=== PATIENT | female | born 1990 | race Caucasian/White ===

== ENCOUNTER 2020-03-10 17:37 | Inpatient (IN) | payer OTHER ==
[~2020-03-10] VITALS: Ht 162.6 cm; Wt 64.0 kg
[2020-03-10] MEDS ORDERED: QUET25TA PO (18:14)
[2020-03-10] MEDS ORDERED: CITA10TA99 PO (18:14)
[2020-03-10] MEDS ORDERED: CLON-592 PO (18:14)
[2020-03-10] MEDS ORDERED: CIPR250T6 PO (18:14)
[2020-03-10] MEDS ORDERED: LEVO25TA9 PO (18:14)
[2020-03-10 18:53] LABS: BASOPHILS % (AUTO) 0.4 % (0.0-2.0); EOSINOPHILS % (AUTO) 0.8 % (1.0-6.0); HEMATOCRIT 40.6 % (36-46); HEMOGLOBIN 13.2 g/dL (12.0-16.0); LYMPHOCYTES # (AUTO) 2.5 K/uL (1.0-4.8); MEAN CORPUSCULAR HEMOGLOBIN 29.2 pg (26.0-34.0); MEAN CORPUSCULAR HGB CONC 32.6 G/dL (31.0-37.0); MEAN CORPUSCULAR VOLUME 90 fL (80-100); MONOCYTES # (AUTO) 0.7 K/uL (0.1-1.0); MONOCYTES % (AUTO) 5.8 % (2.0-9.0); NEUTROPHILS # (AUTO) 9.3 K/uL (1.8-7.7); PLATELET COUNT (AUTO) 348 K/uL (150-450); RED BLOOD CELL COUNT(AUTO) 4.54 MIL/uL (4.00-5.20); RED CELL DISTRIBUTION WIDTH 15.6 % (11.5-14.5)
[2020-03-10 19:05] LABS: ANION GAP 13 mmol/L (8-16); CALCIUM, TOTAL 9.2 mg/dL (8.8-10.5); CARBON DIOXIDE 24 mmol/L (22-29); CHLORIDE 104 mmol/L (98-107); CREATININE 0.96 mg/dL (0.60-1.30); GLOMERULAR FILTR. RATE CALC > 60 mL/min (>60); GLUCOSE,RANDOM 90 mg/dL (70-110); SODIUM SERUM 141 mmol/L (136-145); UREA NITROGEN, BLOOD 5 mg/dL (7-18)
[2020-03-10 19:11] LABS: ALANINE AMINOTRANSFERASE 23 U/L (12-78); ALBUMIN 3.6 g/dL (3.4-5.0); ALKALINE PHOSPHATASE 95 U/L (46-116); ASPARTATE AMINOTRANSFERASE 20 U/L (15-37); BILIRUBIN,TOTAL 0.4 mg/dL (0.1-1.0); TOTAL PROTEIN, SERUM 8.9 g/dL (6.4-8.2)
[2020-03-10] MEDS ORDERED: ONDANSETRON HCL 4 MG/2 ML VIAL IVP PRN ×2 (20:15→20:45)
[2020-03-10] MEDS ORDERED: ACETAMINOPHEN 325 MG TABLET PO PRN ×2 (20:15→20:45)
[2020-03-10 21:40] VITALS: BP 103/68
[2020-03-10 21:43] LABS: THYROID STIMULATING HORMONE 8.21 uIU/mL (0.36-3.74)
[2020-03-10] MEDS: QUEtiapine FUMARATE 25 MG TABLET PO SCH (21:49)
[2020-03-10] MEDS: DOCUSATE SODIUM 100 MG CAPSULE PO SCH (21:50)
[2020-03-10] MEDS ORDERED: MORPHINE SULFATE 2 MG/ML SYRINGE IVP PRN (22:15)
[2020-03-10 23:18] LABS: FREE T4 (FREE THYROXINE) 1.22 ng/dL (0.76-1.46)
[2020-03-11] MEDS ORDERED: CeFAZolin 1 GM/DEXTROSE 50 ML IV SCH
[2020-03-11] MEDS ORDERED: SODIUM CHLORIDE 0.9% 500 ML IV ONE (00:25)
[2020-03-11] MEDS: LIDOCAINE 3% CREAM 85 GM TUBE TP PRN ×2 (00:46→08:21)
[2020-03-11] MEDS: LEVOTHYROXINE SODIUM 25 MCG TABLET PO SCH (05:30)
[2020-03-11 06:18] VITALS: BP 104/75
[2020-03-11 07:56] VITALS: BP 101/62
[2020-03-11] MEDS: QUEtiapine FUMARATE 25 MG TABLET PO SCH (08:20)
[2020-03-11] MEDS: CLINDAMYCIN HCL 300 MG CAPSULE PO SCH ×3 (08:20→23:46)
[2020-03-11] MEDS: ENOXAPARIN SODIUM 40 MG/0.4 ML PF SYRINGE SQ SCH (08:20)
[2020-03-11] MEDS: DOCUSATE SODIUM 100 MG CAPSULE PO SCH ×2 (08:20→21:00)
[2020-03-11] MEDS: CITALOPRAM HYDROBROMIDE 20 MG TABLET PO SCH (11:06)
[2020-03-11] MEDS: BusPIRone HCL 10 MG TABLET PO SCH ×2 (11:06→21:00)
[2020-03-11 12:52] LABS: APPEARANCE,URINE CLEAR (CLEAR); BILIRUBIN,URINE NEGATIVE (NEGATIVE); GLUCOSE, URINE (UA) NEGATIVE (NEGATIVE); KETONES,URINE NEGATIVE (NEGATIVE); LEUKOCYTE ESTERASE ,URINE TRACE (NEGATIVE); NITRATE,URINE NEGATIVE (NEGATIVE); OCCULT BLOOD,URINE NEGATIVE (NEGATIVE); PROTEIN,URINE NEGATIVE (NEGATIVE); UROBILINOGEN,URINE 0.2 mg/dL (<=1.0)
[2020-03-11 13:05] LABS: AMPHET/METH SCREEN,URINE NEGATIVE (NEGATIVE); BARBITURATE SCREEN, URINE NEGATIVE (NEGATIVE); BENZODIAZEPINES SCREEN,URINE NEGATIVE (NEGATIVE); CANNABINOID SCREEN,URINE POSITIVE (NEGATIVE); COCAINE SCREEN,URINE NEGATIVE (NEGATIVE); METHADONE SCREEN, URINE NEGATIVE (NEGATIVE); OPIATE SCREEN,URINE NEGATIVE (NEGATIVE)
[2020-03-11 13:13] LABS: BACTERIA,URINE None Seen /HPF (None Seen); RBC,URINE None Seen /HPF (0-2); SQUAMOUS EPITHELIAL CELL,UR Rare /LPF (None Seen); WBC,URINE 0-2 /HPF (0-5)
[2020-03-11 13:28] LABS: PHENCYCLIDINE SCREEN,URINE NEGATIVE (NEGATIVE)
[2020-03-11 15:45] VITALS: BP 108/59
[2020-03-11 19:32] VITALS: BP 121/72
[2020-03-12 04:45] VITALS: BP 101/59
[2020-03-12] MEDS: LEVOTHYROXINE SODIUM 25 MCG TABLET PO SCH (06:16)
[2020-03-12 07:20] LABS: BASOPHILS % (AUTO) 0.7 % (0.0-2.0); EOSINOPHILS % (AUTO) 1.6 % (1.0-6.0); HEMATOCRIT 41.3 % (36-46); HEMOGLOBIN 13.7 g/dL (12.0-16.0); LYMPHOCYTES # (AUTO) 2.1 K/uL (1.0-4.8); LYMPHOCYTES % (AUTO) 19.9 % (22.0-44.0); MEAN CORPUSCULAR HEMOGLOBIN 29.9 pg (26.0-34.0); MEAN CORPUSCULAR HGB CONC 33.2 G/dL (31.0-37.0); MEAN CORPUSCULAR VOLUME 90 fL (80-100); MONOCYTES # (AUTO) 0.7 K/uL (0.1-1.0); MONOCYTES % (AUTO) 6.2 % (2.0-9.0); NEUTROPHILS # (AUTO) 7.6 K/uL (1.8-7.7); NEUTROPHILS % (AUTO) 71.6 % (40.0-70.0); PLATELET COUNT (AUTO) 337 K/uL (150-450); RED CELL DISTRIBUTION WIDTH 15.3 % (11.5-14.5)
[2020-03-12] MEDS: LIDOCAINE 3% CREAM 85 GM TUBE TP PRN (08:18)
[2020-03-12] MEDS: CLINDAMYCIN HCL 300 MG CAPSULE PO SCH ×3 (08:18→23:48)
[2020-03-12] MEDS: ENOXAPARIN SODIUM 40 MG/0.4 ML PF SYRINGE SQ SCH (08:18)
[2020-03-12] MEDS: DOCUSATE SODIUM 100 MG CAPSULE PO SCH ×3 (08:19→21:00)
[2020-03-12] MEDS: BusPIRone HCL 10 MG TABLET PO SCH ×2 (08:19→21:00)
[2020-03-12] MEDS: CITALOPRAM HYDROBROMIDE 20 MG TABLET PO SCH (08:19)
[2020-03-12 08:36] VITALS: BP 113/62
[2020-03-12 19:48] VITALS: BP 100/57
[2020-03-13 04:40] VITALS: BP 105/64
[2020-03-13] MEDS: LEVOTHYROXINE SODIUM 25 MCG TABLET PO SCH (06:06)
[2020-03-13 07:40] VITALS: BP 110/73
[2020-03-13] MEDS: ENOXAPARIN SODIUM 40 MG/0.4 ML PF SYRINGE SQ SCH (08:46)
[2020-03-13] MEDS: CLINDAMYCIN HCL 300 MG CAPSULE PO SCH ×3 (08:46→23:13)
[2020-03-13] MEDS: DOCUSATE SODIUM 100 MG CAPSULE PO SCH ×3 (08:46→21:00)
[2020-03-13] MEDS: BusPIRone HCL 10 MG TABLET PO SCH ×2 (08:46→19:25)
[2020-03-13] MEDS: CITALOPRAM HYDROBROMIDE 20 MG TABLET PO SCH (08:47)
[2020-03-13 15:54] VITALS: BP 111/77
[2020-03-13 19:23] VITALS: BP 118/77
[2020-03-13] MEDS ORDERED: LOPERAMIDE HCL 2 MG CAPSULE PO ONE (21:45)
[2020-03-13] MEDS: FAMOTIDINE 20 MG TABLET PO SCH (23:13)
[2020-03-14 04:20] VITALS: BP 119/70
[2020-03-14] MEDS: LEVOTHYROXINE SODIUM 25 MCG TABLET PO SCH (05:56)
[2020-03-14 07:34] VITALS: BP 104/59
[2020-03-14] MEDS: FAMOTIDINE 20 MG TABLET PO SCH (08:11)
[2020-03-14] MEDS: CLINDAMYCIN HCL 300 MG CAPSULE PO SCH ×3 (08:11→23:30)
[2020-03-14] MEDS: ENOXAPARIN SODIUM 40 MG/0.4 ML PF SYRINGE SQ SCH (08:11)
[2020-03-14] MEDS: BusPIRone HCL 10 MG TABLET PO SCH ×2 (08:11→19:59)
[2020-03-14] MEDS: CITALOPRAM HYDROBROMIDE 20 MG TABLET PO SCH (08:11)
[2020-03-14 20:15] VITALS: BP 105/62
[2020-03-15] MEDS: LEVOTHYROXINE SODIUM 25 MCG TABLET PO SCH (05:32)
[2020-03-15 07:58] VITALS: BP 109/57
[2020-03-15] MEDS: ENOXAPARIN SODIUM 40 MG/0.4 ML PF SYRINGE SQ SCH (08:38)
[2020-03-15] MEDS: FAMOTIDINE 20 MG TABLET PO SCH (08:38)
[2020-03-15] MEDS: BusPIRone HCL 10 MG TABLET PO SCH (08:38)
[2020-03-15] MEDS: CITALOPRAM HYDROBROMIDE 20 MG TABLET PO SCH (08:39)
[2020-03-15] MEDS: CLINDAMYCIN HCL 300 MG CAPSULE PO SCH (08:39)
[2020-03-15] MEDS ORDERED: BUSP10TA23 PO (11:18)
[2020-03-15] MEDS ORDERED: CLIN300C3 PO (11:20)
[2020-03-15] MEDS ORDERED: FAMO20 PO (11:22)
[2020-03-15 11:33] LABS: COVID AG,FIA SOURCE NASOPHARYNGEAL
== END 2020-03-15 15:02 | DRG 885 ==
LOC: EMS 17:39 → 6S 20:00
PROVIDERS: ADMIT Internal Medicine; ATTEND Internal Medicine
DX: F33.2 Major depressive disorder, recurrent severe without psychotic features (principal); R45.851 Suicidal ideations; R65.10 Systemic inflammatory response syndrome (SIRS) of non-infectious origin without acute organ dysfunction; E03.9 Hypothyroidism, unspecified; F41.0 Panic disorder [episodic paroxysmal anxiety]; L73.2 Hidradenitis suppurativa; F41.9 Anxiety disorder, unspecified; R41.843 Psychomotor deficit; Z79.899 Other long term (current) drug therapy; Z20.828 Contact with and (suspected) exposure to other viral communicable diseases
CPT/HCPCS: 80307; 84439; 84443; 87426; G0480; J0690; J1650; J7040